=== PATIENT | male | born 1980 | race Caucasian/White ===

== ENCOUNTER 2019-08-25 11:58 | Emergency (ER) | payer MEDICAID, SELFPAY ==
[~2019-08-25] VITALS: Ht 177.8 cm; Wt 156.0 kg
--- NOTE | 2019-08-25 12:28 | NUR ---
PATIENT BROUGTH BACK FROM TRIAGE WITH CHIEF COMPLAINT COUGH FOR 1 WEEK, WITH NASAK CONGESTION AND WHITE SPUTUM. PATIENT DENIES SOB, CP, N/V, FEVER. THE PATIENT IS ALERT, ORIENTED, WARM, & DRY.
[2019-08-25] MEDS ORDERED: ALBUTEROL/IPRATROPIUM 2.5MG/0.5MG, 3 ML NPPB ONE ×2 (13:00→15:00)
[2019-08-25] MEDS ORDERED: ALBUTEROL/IPRATROPIUM 2.5MG/0.5MG, 3 ML ONE ×2 (13:09→15:00)
[2019-08-25 13:21] LABS: BASOPHILS # (AUTO) 0.05 x10^3/uL (0-0.1); BASOPHILS % (AUTO) 1 % (0-1); EOSINOPHILS # (AUTO) 0.18 x10^3/uL (0-0.4); EOSINOPHILS % (AUTO) 2 % (1-7); LYMPHOCYTES # (AUTO) 2.25 x10^3/uL (1-3.4); LYMPHOCYTES % (AUTO) 28 % (22-44); MD NO; MEAN CORPUSCULAR HEMOGLOBIN 28.8 pg (27.5-34.5); MEAN CORPUSCULAR HGB CONC 33.2 g/dL (33.2-36.2); MEAN CORPUSCULAR VOLUME 86.7 fL (81-97); MEAN PLATELET VOLUME 8.4 fL (7.4-10.4); MONOCYTES # (AUTO) 0.61 x10^3/uL (0.2-0.8); MONOCYTES % (AUTO) 8 % (2-9); NEUTROPHILS # (AUTO) 4.97 x10^3/uL (1.8-6.8); NEUTROPHILS % (AUTO) 62 % (42-75); PLATELET COUNT 258 x10^3/uL (130-400); RED BLOOD COUNT 5.62 x10^6/uL (4.38-5.82); RED CELL DISTRIBUTION WIDTH 14.3 % (9.4-14.8)
--- NOTE | 2019-08-25 13:26 | NUR ---
RT ADMININSTERED BREATHING TREATMENTS
[2019-08-25 13:30] LABS: ALANINE AMINOTRANSFERASE 43 U/L (12-78); ALBUMIN 3.2 g/dL (3.4-5.0); ANION GAP 8 mmol/L (5-15); CALCIUM 8.7 mg/dL (8.5-10.1); CHLORIDE 104 mmol/L (98-107); CREATININE 0.81 mg/dL (0.7-1.3)
[2019-08-25 13:32] LABS: ALKALINE PHOSPHATASE 74 U/L (45-117); BILIRUBIN,TOTAL 0.5 mg/dL (0.2-1.0); TOTAL PROTEIN 7.7 g/dL (6.4-8.2)
--- NOTE | 2019-08-25 14:09 | NUR ---
Patient is resting comfortably in bed. Vital Signs within normal limits.
[2019-08-25] MEDS ORDERED: SODIUM CHLORIDE 0.9% 1,000ML IVBOLUS ONE (15:00)
[2019-08-25] MEDS ORDERED: SODIUM CHLORIDE FLUSH 10ML SYR IVF ONE (15:00)
--- NOTE | 2019-08-25 15:07 | NUR ---
TASK RN: RT AT BEDSIDE.
[2019-08-25 16:23] VITALS: BP 139/70
--- NOTE | 2019-08-25 16:30 | NUR ---
MALACHI MCKNIGHT AT BEDSIDE TO DISCUSS POC
[2019-08-25] MEDS ORDERED: INSULIN REGULAR 100 UNITS/ML, 3ML VIAL SQ-INSULIN ONE (17:00)
[2019-08-25] MEDS ORDERED: INSULIN SINGLE DOSE, ER ONE (17:31)
--- NOTE | 2019-08-25 17:36 | NUR ---
DISCHARGE INSTUCTIONS REVIEWED.
== END 2019-08-25 17:43 | disposition home or self-care (01) ==
LOC: ED 12:38
DX: J98.01 Acute bronchospasm (principal); R73.9 Hyperglycemia, unspecified; F17.200 Nicotine dependence, unspecified, uncomplicated
CPT/HCPCS: 36415; 71046; 80053; 82962; 85025; 93005; 94640; 96372; 99284; J1815; J7030; J7512; J7620

== ENCOUNTER 2020-03-05 05:20 | Day surgery (SDC) | payer MEDICAID ==
[~2020-03-05] VITALS: Ht 177.8 cm; Wt 154.0 kg
[2020-03-05] MEDS ORDERED: LACTATED RINGERS 1,000 ML IV SCH (05:59)
[2020-03-05] MEDS ORDERED: CHLORHEXIDINE 15 ML UDC MM ONE (06:00)
[2020-03-05] MEDS ORDERED: OMEG1CAP23 PO (06:04)
[2020-03-05] MEDS ORDERED: CHOL10003 PO (06:04)
[2020-03-05] MEDS ORDERED: NAPR250T6 PO (06:04)
[2020-03-05] MEDS ORDERED: IBUP1TAB11 PO (06:04)
[2020-03-05] MEDS ORDERED: ACET-1600 PO (06:04)
[2020-03-05] MEDS ORDERED: IBUP-1223 PO (06:04)
[2020-03-05 06:08] VITALS: BP 134/91
[2020-03-05] MEDS ORDERED: BUPIVACAINE/PF 0.25% ONE (06:11)
[2020-03-05] MEDS ORDERED: BUPIVACAINE/PF-EPI 0.25% 1:200K ONE (06:11)
[2020-03-05] MEDS ORDERED: MIDAZOLAM 1 MG/ML, 2ML ONE (06:28)
[2020-03-05] MEDS ORDERED: FENTANYL PF 250 MCG/5ML ONE (06:29)
[2020-03-05] MEDS ORDERED: KETOROLAC 30 MG/1 ML ONE (06:31)
[2020-03-05] MEDS ORDERED: ALBUTEROL INH (06:35)
[2020-03-05] MEDS ORDERED: SUGAMMADEX 200 MG/2 ML IVPush ONE (06:51)
[2020-03-05] MEDS ORDERED: PROPOFOL 10 MG/ML, 20ML ONE (06:59)
[2020-03-05] MEDS ORDERED: ROCURONIUM 10MG/ML,5ML ONE (06:59)
[2020-03-05] MEDS ORDERED: NEOSTIGMINE 1 MG/ML, 10ML ONE (06:59)
[2020-03-05] MEDS ORDERED: CEFAZOLIN 1,000 MG ONE ×3 (06:59)
[2020-03-05] MEDS ORDERED: FENTANYL PF 100 MCG/2ML IV PRN (07:00)
[2020-03-05] MEDS ORDERED: GLYCOPYRROLATE 0.2MG/1ML, 5ML ONE (07:00)
[2020-03-05] MEDS ORDERED: ONDANSETRON 2MG/ML, 2ML IVPush PRN (07:00)
[2020-03-05] MEDS ORDERED: HYDROmorphone 1 MG/ML, 1ML INJ IVPush PRN (07:00)
[2020-03-05] MEDS ORDERED: ACETAMINOPHEN 325 MG TABLET PO PRN (07:00)
[2020-03-05] MEDS ORDERED: OXYcodone 5 MG/5 ML ORAL.SOL UDC PO PRN (07:00)
[2020-03-05] MEDS ORDERED: ALBUTEROL SULFATE 2.5 MG/3 ML NPPB PRN (07:00)
[2020-03-05] MEDS ORDERED: hydrALAzine 20 MG/ML, 1ML IV PRN (07:00)
[2020-03-05] MEDS ORDERED: morphine SULFATE 10 MG/ML, 1ML IVPush PRN (07:00)
[2020-03-05] MEDS ORDERED: LABETALOL 5MG/ML, 20ML IV PRN (07:00)
[2020-03-05] MEDS ORDERED: MEPERIDINE/PF 25MG/0.5ML IVPush PRN (07:00)
[2020-03-05] MEDS ORDERED: FENTANYL PF 100 MCG/2ML ONE ×2 (07:18→07:54)
[2020-03-05] MEDS ORDERED: ACETAMINOPHEN 325 MG TABLET ONE (07:54)
[2020-03-05] MEDS ORDERED: OXYcodone 5 MG/5 ML ORAL.SOL UDC ONE (07:54)
[2020-03-05] MEDS ORDERED: ACETAMINOPHEN 650 MG/20.3 ML UDC ONE (07:54)
[2020-03-05] MEDS ORDERED: PROMETHAZINE 25 MG/ML, 1ML ONE (08:04)
[2020-03-05] MEDS ORDERED: PROMETHAZINE 25 MG/ML, 1ML IVPush PRN (08:30)
== END 2020-03-05 09:35 | disposition home or self-care (01) ==
LOC: OUT 05:20
PROVIDERS: ATTEND Orthopaedic Surgery
DX: L03.115 Cellulitis of right lower limb (principal); Z11.59 Encounter for screening for other viral diseases; L72.0 Epidermal cyst; J45.909 Unspecified asthma, uncomplicated; Z79.1 Long term (current) use of non-steroidal anti-inflammatories (NSAID); Z79.891 Long term (current) use of opiate analgesic; Z79.899 Other long term (current) drug therapy; Z88.8 Allergy status to other drugs, medicaments and biological substances; Z82.61 Family history of arthritis
CPT/HCPCS: 11406; 12032; 36415; 87635; 88304; J0690; J1885; J2250; J2550; J2704; J2710; J3010; J7120; J3490

== ENCOUNTER 2020-03-19 12:03 | Inpatient (IN) | payer MEDICAID ==
[~2020-03-19] VITALS: Ht 177.8 cm; Wt 157.0 kg
[~2020-03-19 12:03] MED LIST: ACET-1600 PO; ALBUTEROL INH; CHOL10003 PO; IBUP-1223 PO; IBUP1TAB11 PO; NAPR250T6 PO; OMEG1CAP23 PO
[2020-03-19] MEDS ORDERED: LACTATED RINGERS 1,000 ML IV SCH (12:30)
[2020-03-19] MEDS ORDERED: HYDR-3240 PO (12:37)
[2020-03-19] MEDS ORDERED: CEPH-368 PO (12:37)
[2020-03-19] MEDS ORDERED: SULF1TAB24 PO (12:37)
[2020-03-19 12:43] VITALS: BP 132/88
[2020-03-19] MEDS ORDERED: CHLORHEXIDINE 15 ML UDC MM ONE (13:00)
[2020-03-19] MEDS ORDERED: MIDAZOLAM 1 MG/ML, 2ML ONE (15:02)
[2020-03-19] MEDS ORDERED: FENTANYL PF 100 MCG/2ML ONE ×2 (15:03→15:37)
[2020-03-19] MEDS ORDERED: PROPOFOL 10 MG/ML, 20ML ONE (15:04)
[2020-03-19] MEDS ORDERED: SUCCINYLCHOLINE 20 MG/ML, 10ML ONE (15:04)
[2020-03-19] MEDS ORDERED: CEFAZOLIN 1,000 MG ONE (15:16)
[2020-03-19] MEDS ORDERED: DEXAMETHASONE 4 MG/ML, 1ML ONE (15:16)
[2020-03-19] MEDS ORDERED: ONDANSETRON 2MG/ML, 2ML ONE (15:16)
[2020-03-19] MEDS ORDERED: HALOPERIDOL 5 MG/ML IV PRN (16:00)
[2020-03-19] MEDS ORDERED: LABETALOL 5MG/ML, 20ML IV PRN (16:00)
[2020-03-19] MEDS ORDERED: PROMETHAZINE 25 MG/ML, 1ML IVPush PRN (16:00)
[2020-03-19] MEDS ORDERED: hydrALAzine 20 MG/ML, 1ML IV PRN (16:00)
[2020-03-19] MEDS ORDERED: MEPERIDINE/PF 25MG/0.5ML IVPush PRN (16:00)
[2020-03-19] MEDS ORDERED: HYDROmorphone 1 MG/ML, 1ML INJ IVPush PRN (16:00)
[2020-03-19] MEDS ORDERED: OXYcodone 5 MG/5 ML ORAL.SOL UDC PO PRN (16:00)
[2020-03-19] MEDS ORDERED: FENTANYL PF 100 MCG/2ML IV PRN (16:00)
[2020-03-19] MEDS ORDERED: DIPHENHYDRAMINE 50 MG/ML, 1ML IVPush PRN (16:00)
[2020-03-19] MEDS ORDERED: ACETAMINOPHEN 325 MG TABLET PO PRN (18:00)
[2020-03-19] MEDS ORDERED: MAGNESIUM HYDROXIDE 8%, 30ML UDC PO PRN (18:00)
[2020-03-19] MEDS ORDERED: LORazepam 1MG TABLET PO PRN (18:00)
[2020-03-19] MEDS ORDERED: HYDROcodone/APAP 5/325 TABLET PO PRN (18:00)
[2020-03-19] MEDS ORDERED: BISACODYL 10 MG SUPP PR PRN (18:00)
[2020-03-19] MEDS ORDERED: morphine SULFATE 10 MG/ML, 1ML IV PRN (18:00)
[2020-03-19] MEDS ORDERED: ONDANSETRON 2MG/ML, 2ML IV PRN (18:00)
[2020-03-19] MEDS ORDERED: LORazepam 2 MG/ML, 1ML IV PRN (18:00)
[2020-03-19] MEDS ORDERED: PROMETHAZINE 25 MG/ML, 1ML IM PRN (18:00)
[2020-03-19] MEDS ORDERED: OXYcodone/APAP 5/325MG TABLET PO PRN (18:00)
[2020-03-19] MEDS ORDERED: ALUMINUM/MAG/SIMETHICONE 30 ML UDC PO PRN (18:00)
[2020-03-19] MEDS ORDERED: SENNA/DOCUSATE TABLET PO PRN (18:00)
[2020-03-19 18:52] VITALS: BP 139/99
[2020-03-19] MEDS: KETOROLAC 30 MG/1 ML IV SCH (19:09)
[2020-03-19] MEDS ORDERED: CHLORHEXIDINE 15 ML UDC ONE (20:48)
[2020-03-19] MEDS: DOCUSATE 100 MG CAPSULE PO SCH (21:00)
[2020-03-19] MEDS: SODIUM CHLORIDE FLUSH 10ML SYR IVF SCH (21:00)
[2020-03-19 23:24] VITALS: BP 124/82
[2020-03-19] MEDS: CEFAZOLIN PMX 2GM/50ML 50 ML IVPB SCH (23:43)
[2020-03-20] MEDS: KETOROLAC 30 MG/1 ML IV SCH ×2 (02:34→09:41)
[2020-03-20 03:00] VITALS: BP 114/71
[2020-03-20] MEDS ORDERED: ALBUTEROL HFA 90 MCG/SPRAY INH PRN (03:00)
[2020-03-20] MEDS: CEFAZOLIN PMX 2GM/50ML 50 ML IVPB SCH ×2 (06:34→15:04)
[2020-03-20 07:12] VITALS: BP 137/79
[2020-03-20] MEDS ORDERED: ENOXAPARIN 30 MG/0.3 ML SQ ONE (09:00)
[2020-03-20] MEDS: SODIUM CHLORIDE FLUSH 10ML SYR IVF SCH ×2 (09:41→20:58)
[2020-03-20] MEDS: DOCUSATE 100 MG CAPSULE PO SCH ×2 (09:41→20:58)
[2020-03-20] MEDS: MULTIVITAMINS/MINERALS TABLET PO SCH (09:44)
[2020-03-20 12:29] VITALS: BP 119/89
[2020-03-20 19:08] VITALS: BP 126/76
[2020-03-21 00:26] VITALS: BP 114/72
[2020-03-21 07:20] VITALS: BP 111/77
[2020-03-21] MEDS ORDERED: ENOXAPARIN 40 MG/0.4 ML SQ SCH (09:00)
[2020-03-21] MEDS: DOCUSATE 100 MG CAPSULE PO SCH ×2 (09:00→21:54)
[2020-03-21] MEDS: MULTIVITAMINS/MINERALS TABLET PO SCH (09:00)
[2020-03-21] MEDS: SODIUM CHLORIDE FLUSH 10ML SYR IVF SCH (10:16)
[2020-03-21] MEDS ORDERED: OXYcodone 5 MG/5 ML ORAL.SOL UDC PO PRN ×2 (12:30→14:00)
[2020-03-21] MEDS ORDERED: LABETALOL 5MG/ML, 20ML IV PRN ×2 (12:30→14:00)
[2020-03-21] MEDS ORDERED: MIDAZOLAM 1 MG/ML, 2ML IV PRN (12:30)
[2020-03-21] MEDS ORDERED: ONDANSETRON 2MG/ML, 2ML IVPush PRN (12:30)
[2020-03-21] MEDS ORDERED: LORazepam 2 MG/ML, 1ML IVPush PRN (12:30)
[2020-03-21] MEDS ORDERED: HYDROmorphone 1 MG/ML, 1ML INJ IVPush PRN ×2 (12:30→14:00)
[2020-03-21] MEDS ORDERED: MEPERIDINE/PF 25MG/0.5ML IVPush PRN ×2 (12:30→14:00)
[2020-03-21] MEDS ORDERED: HALOPERIDOL 5 MG/ML IV PRN ×2 (12:30→14:00)
[2020-03-21] MEDS ORDERED: DIPHENHYDRAMINE 50 MG/ML, 1ML IVPush PRN ×2 (12:30→14:00)
[2020-03-21] MEDS ORDERED: EPHEDRINE 50 MG/ML, 1ML IVPush PRN (12:30)
[2020-03-21] MEDS ORDERED: EPHEDRINE 50 MG/ML, 1ML IM PRN (12:30)
[2020-03-21] MEDS ORDERED: KETOROLAC 30 MG/1 ML IVPush PRN (12:30)
[2020-03-21] MEDS ORDERED: DIAZEPAM 5 MG/ML, 2ML IVPush PRN (12:30)
[2020-03-21] MEDS ORDERED: METOCLOPRAMIDE 5 MG/ML, 2ML IVPush PRN (12:30)
[2020-03-21] MEDS ORDERED: hydrALAzine 20 MG/ML, 1ML IV PRN ×2 (12:30→14:00)
[2020-03-21] MEDS ORDERED: FENTANYL PF 100 MCG/2ML IV PRN ×2 (12:30→14:00)
[2020-03-21] MEDS ORDERED: ALBUTEROL/IPRATROPIUM 2.5MG/0.5MG, 3 ML NPPB PRN (12:30)
[2020-03-21] MEDS ORDERED: HYDROcodone/APAP 7.5-325MG/15ML UDC PO PRN (12:30)
[2020-03-21 12:47] VITALS: BP 127/84
[2020-03-21] MEDS ORDERED: CHLORHEXIDINE 15 ML UDC ONE (12:58)
[2020-03-21] MEDS ORDERED: CHLORHEXIDINE 15 ML UDC MM ONE (13:00)
[2020-03-21] MEDS ORDERED: MIDAZOLAM 1 MG/ML, 5ML ONE (13:28)
[2020-03-21] MEDS ORDERED: FENTANYL PF 250 MCG/5ML ONE (13:28)
[2020-03-21] MEDS ORDERED: ROCURONIUM 10MG/ML,5ML ONE (13:28)
[2020-03-21] MEDS ORDERED: DEXAMETHASONE 4 MG/ML, 1ML ONE ×2 (13:28→14:18)
[2020-03-21] MEDS ORDERED: GLYCOPYRROLATE 0.2MG/1ML, 5ML ONE (13:28)
[2020-03-21] MEDS ORDERED: PROPOFOL 10 MG/ML, 20ML ONE ×2 (13:28→14:18)
[2020-03-21] MEDS ORDERED: FENTANYL PF 100 MCG/2ML ONE (13:47)
[2020-03-21] MEDS ORDERED: PROMETHAZINE 25 MG/ML, 1ML IVPush PRN (14:00)
[2020-03-21] MEDS ORDERED: CEFAZOLIN 1,000 MG ONE ×2 (14:18)
[2020-03-21] MEDS ORDERED: ONDANSETRON 2MG/ML, 2ML ONE (14:18)
[2020-03-21] MEDS ORDERED: OXYcodone/APAP 5/325MG TABLET PO PRN (16:00)
[2020-03-21] MEDS ORDERED: BISACODYL 10 MG SUPP PR PRN (16:00)
[2020-03-21] MEDS ORDERED: HYDROmorphone 2 MG/ML, 1ML IVPush PRN (16:00)
[2020-03-21] MEDS ORDERED: ACETAMINOPHEN 325 MG TABLET PO PRN (16:00)
[2020-03-21] MEDS ORDERED: HYDROcodone/APAP 5/325 TABLET PO PRN (16:00)
[2020-03-21] MEDS ORDERED: SENNA/DOCUSATE TABLET PO PRN (16:00)
[2020-03-21] MEDS ORDERED: PROMETHAZINE 25 MG/ML, 1ML IM PRN (16:00)
[2020-03-21] MEDS ORDERED: MAGNESIUM HYDROXIDE 8%, 30ML UDC PO PRN (16:00)
[2020-03-21] MEDS ORDERED: LORazepam 2 MG/ML, 1ML IV PRN (16:00)
[2020-03-21] MEDS ORDERED: ONDANSETRON 2MG/ML, 2ML IV PRN (16:00)
[2020-03-21] MEDS ORDERED: LORazepam 1MG TABLET PO PRN (16:00)
[2020-03-21] MEDS: KETOROLAC 30 MG/1 ML IV SCH (17:05)
[2020-03-21 18:49] VITALS: BP 126/72
[2020-03-21] MEDS ORDERED: SODIUM CHLORIDE FLUSH 10ML SYR IVF SCH (21:00)
[2020-03-21] MEDS ORDERED: DOCUSATE 100 MG CAPSULE PO SCH (21:00)
[2020-03-21] MEDS: CEFAZOLIN PMX 2GM/50ML 50 ML IVPB SCH (21:54)
[2020-03-22 00:18] VITALS: BP 136/82
[2020-03-22] MEDS: KETOROLAC 30 MG/1 ML IV SCH ×2 (01:05→09:42)
[2020-03-22] MEDS: SODIUM CHLORIDE FLUSH 10ML SYR IVF SCH ×3 (01:06→19:53)
[2020-03-22 03:35] VITALS: BP 123/72
[2020-03-22] MEDS: CEFAZOLIN PMX 2GM/50ML 50 ML IVPB SCH (05:53)
[2020-03-22] MEDS ORDERED: ENOXAPARIN 30 MG/0.3 ML SQ SCH (06:00)
[2020-03-22 08:00] VITALS: BP 122/77
[2020-03-22] MEDS: MULTIVITAMINS/MINERALS TABLET PO SCH (09:42)
[2020-03-22] MEDS: DOCUSATE 100 MG CAPSULE PO SCH ×2 (09:43→19:53)
[2020-03-22 12:37] VITALS: BP 130/85
[2020-03-22] MEDS: ENOXAPARIN 40 MG/0.4 ML SQ SCH (17:51)
[2020-03-22 18:25] VITALS: BP 129/89
[2020-03-23 01:51] VITALS: BP 127/79
[2020-03-23] MEDS: ENOXAPARIN 40 MG/0.4 ML SQ SCH ×2 (06:29→17:14)
[2020-03-23 06:46] LABS: CREATININE 0.76 mg/dL (0.7-1.3)
[2020-03-23 09:00] VITALS: BP 122/84
[2020-03-23] MEDS: DOCUSATE 100 MG CAPSULE PO SCH ×2 (10:19→17:13)
[2020-03-23] MEDS: MULTIVITAMINS/MINERALS TABLET PO SCH (10:21)
[2020-03-23 13:03] VITALS: BP 125/78
[2020-03-23] MEDS: SODIUM CHLORIDE FLUSH 10ML SYR IVF SCH ×2 (16:03→21:00)
[2020-03-23 19:02] VITALS: BP 126/82
[2020-03-24 00:13] VITALS: BP 122/85
[2020-03-24] MEDS: ENOXAPARIN 40 MG/0.4 ML SQ SCH ×2 (07:04→18:00)
[2020-03-24 07:09] VITALS: BP 129/84
[2020-03-24] MEDS: DOCUSATE 100 MG CAPSULE PO SCH (09:00)
[2020-03-24] MEDS: MULTIVITAMINS/MINERALS TABLET PO SCH (09:01)
[2020-03-24] MEDS: SODIUM CHLORIDE FLUSH 10ML SYR IVF SCH (09:02)
[2020-03-24 13:24] VITALS: BP 134/84
[2020-03-24] MEDS ORDERED: OXYC5CAP2 PO (16:47)
[2020-03-24] MEDS ORDERED: ONDA4TAB7 PO (16:48)
== END 2020-03-24 18:30 | disposition home or self-care (01) | DRG 921 ==
LOC: ORIP 12:03 → 4NE 17:25
PROVIDERS: ADMIT Orthopaedic Surgery; ATTEND Orthopaedic Surgery
PROC: 0Y9J0ZZ Drainage of Left Lower Leg, Open Approach (ICD-10-PCS; principal; 2020-03-19 14:45)
PROC: 2W4RX5Z Packing of Left Lower Leg using Packing Material (ICD-10-PCS; 2020-03-21)
DX: L76.34 Postprocedural seroma of skin and subcutaneous tissue following other procedure (principal); Y83.8 Other surgical procedures as the cause of abnormal reaction of the patient, or of later complication, without mention of misadventure at the time of the procedure; Y82.8 Other medical devices associated with adverse incidents; L40.9 Psoriasis, unspecified; Z20.828 Contact with and (suspected) exposure to other viral communicable diseases; Z88.8 Allergy status to other drugs, medicaments and biological substances
CPT/HCPCS: 36415; 82565; 87070; 87075; 87205; 87635; G0378; J0690; J1100; J1650; J1885; J2250; J2405; J2704; J3010; J0330; J7120

== ENCOUNTER → 2020-03-25 | Outpatient (CLI) | payer MEDICAID ==
[~2020-03-25] MED LIST changes: +CEPH-368 PO; +HYDR-3240 PO; +ONDA4TAB7 PO; +OXYC5CAP2 PO; +SULF1TAB24 PO
== END | disposition home or self-care (01) ==
LOC: WOUND 12:56
PROVIDERS: ATTEND Internal Medicine Cardiovascular Disease
DX: T81.89XA Other complications of procedures, not elsewhere classified, initial encounter (principal); L40.9 Psoriasis, unspecified; J45.909 Unspecified asthma, uncomplicated; Z79.1 Long term (current) use of non-steroidal anti-inflammatories (NSAID); Z79.891 Long term (current) use of opiate analgesic; Z79.899 Other long term (current) drug therapy; Z88.8 Allergy status to other drugs, medicaments and biological substances; Y83.8 Other surgical procedures as the cause of abnormal reaction of the patient, or of later complication, without mention of misadventure at the time of the procedure; Y92.239 Unspecified place in hospital as the place of occurrence of the external cause
CPT/HCPCS: 97605

== ENCOUNTER 2020-03-27 13:01 | Outpatient (CLI) | payer MEDICAID | END 2020-03-27 23:59 | disposition home or self-care (01) | LOC: WOUND 13:01 | PROVIDERS: ATTEND Internal Medicine Cardiovascular Disease | DX: T81.89XD Other complications of procedures, not elsewhere classified, subsequent encounter (principal); L40.9 Psoriasis, unspecified; J45.909 Unspecified asthma, uncomplicated; G89.4 Chronic pain syndrome; Z79.1 Long term (current) use of non-steroidal anti-inflammatories (NSAID); Z79.891 Long term (current) use of opiate analgesic; Z79.899 Other long term (current) drug therapy; Z88.8 Allergy status to other drugs, medicaments and biological substances; Y83.8 Other surgical procedures as the cause of abnormal reaction of the patient, or of later complication, without mention of misadventure at the time of the procedure | CPT/HCPCS: 97605 ==

== ENCOUNTER → 2020-03-29 | Outpatient (CLI) | payer MEDICAID | END | disposition home or self-care (01) | LOC: WOUND 09:10 | PROVIDERS: ATTEND Internal Medicine Cardiovascular Disease | DX: T81.89XD Other complications of procedures, not elsewhere classified, subsequent encounter (principal); L40.9 Psoriasis, unspecified; J45.909 Unspecified asthma, uncomplicated; Z79.1 Long term (current) use of non-steroidal anti-inflammatories (NSAID); Z79.891 Long term (current) use of opiate analgesic; Z79.899 Other long term (current) drug therapy; Z88.8 Allergy status to other drugs, medicaments and biological substances; Y83.8 Other surgical procedures as the cause of abnormal reaction of the patient, or of later complication, without mention of misadventure at the time of the procedure | CPT/HCPCS: 97605 ==

== ENCOUNTER 2020-04-01 13:10 | Outpatient (CLI) | payer MEDICAID | END 2020-04-01 23:59 | disposition home or self-care (01) | LOC: WOUND 13:10 | PROVIDERS: ATTEND Internal Medicine | DX: T81.31XD Disruption of external operation (surgical) wound, not elsewhere classified, subsequent encounter (principal); S81.802D Unspecified open wound, left lower leg, subsequent encounter; L40.9 Psoriasis, unspecified; J45.909 Unspecified asthma, uncomplicated; G89.4 Chronic pain syndrome; F17.210 Nicotine dependence, cigarettes, uncomplicated; E66.01 Morbid (severe) obesity due to excess calories; E46 Unspecified protein-calorie malnutrition; Z68.42 Body mass index [BMI] 45.0-49.9, adult; Z79.1 Long term (current) use of non-steroidal anti-inflammatories (NSAID); Z79.891 Long term (current) use of opiate analgesic; Z79.899 Other long term (current) drug therapy; Z88.8 Allergy status to other drugs, medicaments and biological substances; X58.XXXD Exposure to other specified factors, subsequent encounter; Y83.8 Other surgical procedures as the cause of abnormal reaction of the patient, or of later complication, without mention of misadventure at the time of the procedure | CPT/HCPCS: 11042; 97605; 99215 ==

== ENCOUNTER 2020-04-03 13:22 | Outpatient (CLI) | payer MEDICAID | END 2020-04-03 23:59 | disposition home or self-care (01) | LOC: WOUND 13:22 | PROVIDERS: ATTEND Internal Medicine | DX: T81.31XD Disruption of external operation (surgical) wound, not elsewhere classified, subsequent encounter (principal); S81.802D Unspecified open wound, left lower leg, subsequent encounter; L40.0 Psoriasis vulgaris; J45.909 Unspecified asthma, uncomplicated; G89.4 Chronic pain syndrome; E44.0 Moderate protein-calorie malnutrition; F17.210 Nicotine dependence, cigarettes, uncomplicated; E66.01 Morbid (severe) obesity due to excess calories; Z68.42 Body mass index [BMI] 45.0-49.9, adult; Z79.1 Long term (current) use of non-steroidal anti-inflammatories (NSAID); Z79.891 Long term (current) use of opiate analgesic; Z79.899 Other long term (current) drug therapy; Z79.4 Long term (current) use of insulin; Z88.8 Allergy status to other drugs, medicaments and biological substances; Y83.8 Other surgical procedures as the cause of abnormal reaction of the patient, or of later complication, without mention of misadventure at the time of the procedure; X58.XXXD Exposure to other specified factors, subsequent encounter | CPT/HCPCS: 97605 ==

== ENCOUNTER → 2020-04-05 | Outpatient (CLI) | payer MEDICAID | END | disposition home or self-care (01) | LOC: WOUND 13:40 | PROVIDERS: ATTEND Family Medicine | DX: T81.31XD Disruption of external operation (surgical) wound, not elsewhere classified, subsequent encounter (principal); S81.802D Unspecified open wound, left lower leg, subsequent encounter; L40.9 Psoriasis, unspecified; J45.909 Unspecified asthma, uncomplicated; G89.4 Chronic pain syndrome; F17.210 Nicotine dependence, cigarettes, uncomplicated; Z79.1 Long term (current) use of non-steroidal anti-inflammatories (NSAID); Z79.891 Long term (current) use of opiate analgesic; Z79.899 Other long term (current) drug therapy; Z88.8 Allergy status to other drugs, medicaments and biological substances; Y83.8 Other surgical procedures as the cause of abnormal reaction of the patient, or of later complication, without mention of misadventure at the time of the procedure; X58.XXXD Exposure to other specified factors, subsequent encounter | CPT/HCPCS: 97605 ==

== ENCOUNTER 2020-04-07 14:41 | Inpatient (IN) | payer MEDICAID ==
[~2020-04-07] VITALS: Ht 177.8 cm; Wt 152.8 kg
--- NOTE | 2020-04-07 15:27 | NUR ---
IRRIGATION TECHNICIAN: PT TO ROOM FROM LOBBY VIA W/C
[2020-04-07] MEDS ORDERED: PIPERACILLIN/TAZO/PMX 3.375GM 50 ML IV ONE (16:30)
--- NOTE | 2020-04-07 16:38 | NUR ---
TASK RN: PIV PLACED, LABS DRAWN, 1ST SET OF CULTURES DRAWN. SALES HOST IN ROOM TO DRAW SECOND SET OF BLOOD CULTURES
[2020-04-07 16:49] LABS: BASOPHILS # (AUTO) 0.07 x10^3/uL (0-0.1); BASOPHILS % (AUTO) 1 % (0-1); EOSINOPHILS # (AUTO) 0.12 x10^3/uL (0-0.4); EOSINOPHILS % (AUTO) 1 % (1-7); LYMPHOCYTES # (AUTO) 2.33 x10^3/uL (1-3.4); LYMPHOCYTES % (AUTO) 19 % (22-44); MD NO; MEAN CORPUSCULAR HEMOGLOBIN 28.6 pg (27.5-34.5); MEAN CORPUSCULAR HGB CONC 33.3 g/dL (33.2-36.2); MEAN CORPUSCULAR VOLUME 85.9 fL (81-97); MEAN PLATELET VOLUME 8.1 fL (7.4-10.4); MONOCYTES # (AUTO) 0.77 x10^3/uL (0.2-0.8); MONOCYTES % (AUTO) 6 % (2-9); NEUTROPHILS # (AUTO) 9.02 x10^3/uL (1.8-6.8); NEUTROPHILS % (AUTO) 73 % (42-75); PLATELET COUNT 366 x10^3/uL (130-400); RED BLOOD COUNT 5.33 x10^6/uL (4.38-5.82); RED CELL DISTRIBUTION WIDTH 13.7 % (9.4-14.8)
[2020-04-07] MEDS ORDERED: PIPERACILLIN/TAZO/PMX 3.375GM 50 ML ONE (16:56)
--- NOTE | 2020-04-07 17:07 | NUR ---
IV ABS STARTED PER NOV. 2 SETS BLOOD CX COLLECTED PRIOR TO ADMIN. PT RESTING ON GURNEY WATCHING TV. DEEPTHI.
[2020-04-07 17:15] LABS: ALBUMIN 2.8 g/dL (3.4-5.0); ANION GAP 11 mmol/L (5-15); CALCIUM 8.5 mg/dL (8.5-10.1); CHLORIDE 105 mmol/L (98-107); CREATININE 0.73 mg/dL (0.7-1.3)
[2020-04-07] MEDS ORDERED: SODIUM CHLORIDE 0.9% 1,000ML IVBOLUS ONE (17:30)
[2020-04-07] MEDS ORDERED: ONDANSETRON 2MG/ML, 2ML ONE (18:07)
[2020-04-07] MEDS ORDERED: MORPHINE SULFATE 4 MG/ML, 1ML ONE (18:07)
--- NOTE | 2020-04-07 18:16 | NUR ---
BREAK RN: PATIENT MEDICATED PER EMAR, GIVEN 2MG MORPHINE TO START OFF WITH PER PATIENT REQUEST, WILL REASSESS PAIN LEVEL IN 10-15MIN FOR OTHER HALF OF MORPHINE DOSE.
[2020-04-07] MEDS ORDERED: ONDANSETRON 2MG/ML, 2ML IVPush PRN (18:30)
[2020-04-07] MEDS ORDERED: SODIUM CHLORIDE FLUSH 10ML SYR IVF PRN (18:30)
[2020-04-07] MEDS ORDERED: MORPHINE SULFATE 4 MG/ML, 1ML IVPush PRN (18:30)
--- NOTE | 2020-04-07 18:49 | NUR ---
BREAK RN: PATIENT STATES PAIN HAS SUBSIDED, DOES NOT WISH OTHER HALF OF MORPHINE DOSE. WASTED WITH ALAN MCKEON
--- NOTE | 2020-04-07 19:04 | NUR ---
HOSPITALIST AT BEDSIDE.
[2020-04-07] MEDS ORDERED: MELATONIN 5 MG TABLET PO PRN (20:00)
[2020-04-07] MEDS ORDERED: DOCUSATE 100 MG CAPSULE PO PRN (20:00)
[2020-04-07] MEDS ORDERED: ENALAPRILAT 1.25 MG/ML, 2ML IVPush PRN (20:00)
--- NOTE | 2020-04-07 20:18 | NUR ---
REPORT GIVEN TO LUIS DANIEL PHILLIPS.
[2020-04-07 20:35] VITALS: BP 138/89
[2020-04-07] MEDS: PIPERACILLIN/TAZO/PMX 3.375GM 50 ML IV SCH (23:03)
[2020-04-07] MEDS: ENOXAPARIN 40 MG/0.4 ML SQ SCH (23:04)
[2020-04-07] MEDS: INSULIN LISPRO 100 UNITS/ML, PEN SQ-INSULIN SCH (23:48)
[2020-04-08 01:14] VITALS: BP 147/92
[2020-04-08 04:45] LABS: BASOPHILS # (AUTO) 0.06 x10^3/uL (0-0.1); BASOPHILS % (AUTO) 1 % (0-1); EOSINOPHILS # (AUTO) 0.25 x10^3/uL (0-0.4); EOSINOPHILS % (AUTO) 2 % (1-7); LYMPHOCYTES # (AUTO) 3.17 x10^3/uL (1-3.4); LYMPHOCYTES % (AUTO) 26 % (22-44); MD NO; MEAN CORPUSCULAR HEMOGLOBIN 28.7 pg (27.5-34.5); MEAN CORPUSCULAR HGB CONC 32.9 g/dL (33.2-36.2); MEAN CORPUSCULAR VOLUME 87.3 fL (81-97); MONOCYTES # (AUTO) 0.94 x10^3/uL (0.2-0.8); MONOCYTES % (AUTO) 8 % (2-9); NEUTROPHILS % (AUTO) 64 % (42-75); PLATELET COUNT 341 x10^3/uL (130-400); RED CELL DISTRIBUTION WIDTH 13.9 % (9.4-14.8)
[2020-04-08] MEDS: PIPERACILLIN/TAZO/PMX 3.375GM 50 ML IV SCH (04:51)
[2020-04-08 04:56] LABS: ANION GAP 8 mmol/L (5-15); CALCIUM 8.4 mg/dL (8.5-10.1); CHLORIDE 103 mmol/L (98-107); CREATININE 0.74 mg/dL (0.7-1.3)
[2020-04-08 06:39] VITALS: BP 105/70
[2020-04-08] MEDS: INSULIN LISPRO 100 UNITS/ML, PEN SQ-INSULIN SCH ×4 (07:59→21:28)
[2020-04-08] MEDS ORDERED: VANCOMYCIN 2,500 MG in SODIUM CHLORIDE 0.9% 500 ML IV ONE (09:00)
[2020-04-08] MEDS: VANCOMYCIN PER PHARMACY MC SCH (09:00)
[2020-04-08] MEDS: INSULIN GLARGINE 100 UNITS/ML, PEN SQ-INSULIN SCH ×2 (09:26→21:28)
[2020-04-08 12:29] VITALS: BP 143/94
[2020-04-08] MEDS: ONDANSETRON 2MG/ML, 2ML IVPush PRN ×2 (12:31→21:27)
[2020-04-08 20:52] VITALS: BP 118/77
[2020-04-08] MEDS: VANCOMYCIN 2,000 MG in SODIUM CHLORIDE 0.9% 500 ML IV SCH (21:15)
[2020-04-08] MEDS: ENOXAPARIN 40 MG/0.4 ML SQ SCH (21:15)
[2020-04-09 00:06] VITALS: BP 132/84
[2020-04-09] MEDS: ONDANSETRON 2MG/ML, 2ML IVPush PRN ×3 (05:08→20:35)
[2020-04-09 07:06] VITALS: BP 100/65
[2020-04-09] MEDS: VANCOMYCIN PER PHARMACY MC SCH (08:13)
[2020-04-09] MEDS: INSULIN LISPRO 100 UNITS/ML, PEN SQ-INSULIN SCH ×4 (08:45→20:56)
[2020-04-09] MEDS: INSULIN GLARGINE 100 UNITS/ML, PEN SQ-INSULIN SCH ×2 (08:46→20:57)
[2020-04-09] MEDS: VANCOMYCIN 2,000 MG in SODIUM CHLORIDE 0.9% 500 ML IV SCH ×2 (09:49→20:35)
[2020-04-09 13:12] VITALS: BP 112/73
[2020-04-09 19:37] VITALS: BP 143/85
[2020-04-09] MEDS: ENOXAPARIN 40 MG/0.4 ML SQ SCH (20:35)
[2020-04-10 01:28] VITALS: BP 116/78
[2020-04-10] MEDS: ONDANSETRON 2MG/ML, 2ML IVPush PRN ×2 (05:10→10:33)
[2020-04-10] MEDS: VANCOMYCIN PER PHARMACY MC SCH (08:14)
[2020-04-10] MEDS ORDERED: INSULIN GLARGINE 100 UNITS/ML, PEN SQ-INSULIN SCH (09:00)
[2020-04-10 09:16] VITALS: BP 129/84
[2020-04-10] MEDS: VANCOMYCIN 2,000 MG in SODIUM CHLORIDE 0.9% 500 ML IV SCH (09:19)
[2020-04-10] MEDS: INSULIN LISPRO 100 UNITS/ML, PEN SQ-INSULIN SCH ×4 (09:20→22:18)
[2020-04-10 10:25] LABS: MEAN CORPUSCULAR HEMOGLOBIN 28.4 pg (27.5-34.5); MEAN CORPUSCULAR HGB CONC 32.9 g/dL (33.2-36.2); MEAN CORPUSCULAR VOLUME 86.3 fL (81-97); MEAN PLATELET VOLUME 7.3 fL (7.4-10.4); PLATELET COUNT 350 x10^3/uL (130-400); RED BLOOD COUNT 4.98 x10^6/uL (4.38-5.82); RED CELL DISTRIBUTION WIDTH 14.2 % (9.4-14.8)
[2020-04-10 11:19] LABS: MD YES
[2020-04-10 11:23] LABS: <PLATELET ESTIMATE> ADEQUATE; <PLT MORPHOLOGY> NORMAL PLT MORPH; <RBC MORPHOLOGY> NORMAL; BANDS%(MANUAL) 6 % (0-7); LYMPH#(MANUAL) 2.46 x10^3/uL (1-3.4); LYMPHS% (MANUAL) 21 % (22-44); MONOS% (MANUAL) 6 % (2-9); SEG#(MANUAL) 7.84 x10^3/uL (1.8-6.8); SEGS% (MANUAL) 67 % (42-75)
[2020-04-10] MEDS: PIPERACILLIN/TAZO/PMX 4.5GM 100 ML IV SCH ×2 (12:42→18:13)
[2020-04-10 14:35] VITALS: BP 115/78
[2020-04-10] MEDS ORDERED: VANCOMYCIN 2,000 MG in SODIUM CHLORIDE 0.9% 500 ML IV SCH (17:00)
[2020-04-10 21:05] VITALS: BP 120/76
[2020-04-10] MEDS: LINEZOLID 600 MG TABLET PO SCH (21:05)
[2020-04-10] MEDS: ENOXAPARIN 40 MG/0.4 ML SQ SCH (21:06)
[2020-04-10] MEDS: INSULIN GLARGINE 100 UNITS/ML, PEN SQ-INSULIN SCH (22:17)
[2020-04-10 22:24] VITALS: BP 120/74
[2020-04-11] MEDS: PIPERACILLIN/TAZO/PMX 4.5GM 100 ML IV SCH ×3 (00:15→12:21)
[2020-04-11 00:18] VITALS: BP 124/72
[2020-04-11 06:13] LABS: BASOPHILS # (AUTO) 0.03 x10^3/uL (0-0.1); BASOPHILS % (AUTO) 0 % (0-1); EOSINOPHILS % (AUTO) 2 % (1-7); LYMPHOCYTES # (AUTO) 1.95 x10^3/uL (1-3.4); LYMPHOCYTES % (AUTO) 17 % (22-44); MD NO; MEAN CORPUSCULAR HEMOGLOBIN 28.7 pg (27.5-34.5); MEAN CORPUSCULAR HGB CONC 33.3 g/dL (33.2-36.2); MEAN CORPUSCULAR VOLUME 86.2 fL (81-97); MEAN PLATELET VOLUME 7.9 fL (7.4-10.4); MONOCYTES # (AUTO) 0.94 x10^3/uL (0.2-0.8); MONOCYTES % (AUTO) 8 % (2-9); NEUTROPHILS # (AUTO) 8.61 x10^3/uL (1.8-6.8); NEUTROPHILS % (AUTO) 74 % (42-75); PLATELET COUNT 360 x10^3/uL (130-400); RED BLOOD COUNT 4.94 x10^6/uL (4.38-5.82); RED CELL DISTRIBUTION WIDTH 13.7 % (9.4-14.8)
[2020-04-11] MEDS: OXYcodone IR 5MG TABLET PO PRN ×3 (06:40→19:52)
[2020-04-11] MEDS: INSULIN LISPRO 100 UNITS/ML, PEN SQ-INSULIN SCH ×6 (07:00→20:01)
[2020-04-11] MEDS: INSULIN GLARGINE 100 UNITS/ML, PEN SQ-INSULIN SCH ×2 (10:24→20:01)
[2020-04-11] MEDS: LINEZOLID 600 MG TABLET PO SCH (10:24)
[2020-04-11 10:27] VITALS: BP 134/78
[2020-04-11 13:20] VITALS: BP 117/77
[2020-04-11] MEDS: DAPTOMYCIN IVPB SCH (13:50)
[2020-04-11] MEDS: SODIUM CHLORIDE 0.9% IVPB SCH (13:50)
[2020-04-11 18:00] VITALS: BP 126/73
[2020-04-11] MEDS: ENOXAPARIN 40 MG/0.4 ML SQ SCH (19:52)
[2020-04-11] MEDS: ONDANSETRON 2MG/ML, 2ML IVPush PRN (20:21)
[2020-04-12 01:09] VITALS: BP 129/83
[2020-04-12] MEDS: OXYcodone IR 5MG TABLET PO PRN ×3 (03:51→17:35)
[2020-04-12] MEDS: ONDANSETRON 2MG/ML, 2ML IVPush PRN (03:52)
[2020-04-12 06:26] LABS: BASOPHILS # (AUTO) 0.05 x10^3/uL (0-0.1); BASOPHILS % (AUTO) 1 % (0-1); EOSINOPHILS # (AUTO) 0.21 x10^3/uL (0-0.4); EOSINOPHILS % (AUTO) 2 % (1-7); LYMPHOCYTES # (AUTO) 2.04 x10^3/uL (1-3.4); LYMPHOCYTES % (AUTO) 19 % (22-44); MD NO; MEAN CORPUSCULAR HEMOGLOBIN 28.4 pg (27.5-34.5); MEAN CORPUSCULAR HGB CONC 32.9 g/dL (33.2-36.2); MEAN CORPUSCULAR VOLUME 86.3 fL (81-97); MEAN PLATELET VOLUME 7.9 fL (7.4-10.4); MONOCYTES # (AUTO) 0.88 x10^3/uL (0.2-0.8); MONOCYTES % (AUTO) 8 % (2-9); NEUTROPHILS # (AUTO) 7.63 x10^3/uL (1.8-6.8); NEUTROPHILS % (AUTO) 71 % (42-75); PLATELET COUNT 385 x10^3/uL (130-400); RED BLOOD COUNT 4.82 x10^6/uL (4.38-5.82); RED CELL DISTRIBUTION WIDTH 13.5 % (9.4-14.8)
[2020-04-12 06:32] LABS: ANION GAP 8 mmol/L (5-15); CALCIUM 8.2 mg/dL (8.5-10.1); CHLORIDE 105 mmol/L (98-107); CREATININE 0.65 mg/dL (0.7-1.3)
[2020-04-12 06:45] VITALS: BP 106/71
[2020-04-12] MEDS: ENOXAPARIN 30 MG/0.3 ML SQ SCH ×2 (08:27→22:00)
[2020-04-12] MEDS: INSULIN LISPRO 100 UNITS/ML, PEN SQ-INSULIN SCH ×4 (08:28→22:00)
[2020-04-12] MEDS: INSULIN GLARGINE 100 UNITS/ML, PEN SQ-INSULIN SCH ×2 (08:28→22:00)
[2020-04-12] MEDS ORDERED: GADOTERATE 7.5 MMOL/15 ML SYR ONE (11:43)
[2020-04-12 13:16] VITALS: BP 136/89
[2020-04-12] MEDS: DAPTOMYCIN IVPB SCH (14:46)
[2020-04-12] MEDS: SODIUM CHLORIDE 0.9% IVPB SCH (14:46)
[2020-04-12 20:16] VITALS: BP 134/88
[2020-04-13 00:51] VITALS: BP 127/76
[2020-04-13] MEDS: OXYcodone IR 5MG TABLET PO PRN ×2 (06:10→20:34)
[2020-04-13 07:16] VITALS: BP 145/87
[2020-04-13] MEDS: INSULIN LISPRO 100 UNITS/ML, PEN SQ-INSULIN SCH ×4 (08:01→20:35)
[2020-04-13] MEDS: ENOXAPARIN 30 MG/0.3 ML SQ SCH ×2 (08:02→20:34)
[2020-04-13 08:58] LABS: ANION GAP 7 mmol/L (5-15); CHLORIDE 107 mmol/L (98-107); CREATININE 0.69 mg/dL (0.7-1.3)
[2020-04-13 09:00] LABS: CREATINE KINASE, TOTAL 36 U/L (39-308)
[2020-04-13] MEDS: INSULIN GLARGINE 100 UNITS/ML, PEN SQ-INSULIN SCH ×2 (09:37→20:36)
[2020-04-13 13:25] VITALS: BP 134/84
[2020-04-13] MEDS: DAPTOMYCIN IVPB SCH (15:51)
[2020-04-13] MEDS: SODIUM CHLORIDE 0.9% IVPB SCH (15:51)
[2020-04-13 18:26] VITALS: BP 143/84
[2020-04-14 01:13] VITALS: BP 118/76
[2020-04-14] MEDS: INSULIN LISPRO 100 UNITS/ML, PEN SQ-INSULIN SCH ×4 (07:00→19:57)
[2020-04-14 07:29] VITALS: BP 139/86
[2020-04-14] MEDS: FENTANYL PF 100 MCG/2ML IV PRN ×2 (08:52→09:04)
[2020-04-14] MEDS ORDERED: HYDROmorphone 1 MG/ML, 1ML INJ IVPush PRN (09:00)
[2020-04-14] MEDS ORDERED: PROMETHAZINE 25 MG SUPP PR PRN (09:00)
[2020-04-14] MEDS ORDERED: PROMETHAZINE 25 MG/ML, 1ML IVPush PRN (09:00)
[2020-04-14] MEDS ORDERED: OXYcodone 5 MG/5 ML ORAL.SOL UDC PO PRN (09:00)
[2020-04-14] MEDS ORDERED: ACETAMINOPHEN 325 MG TABLET PO PRN (09:00)
[2020-04-14] MEDS ORDERED: ONDANSETRON 2MG/ML, 2ML IVPush PRN (09:00)
[2020-04-14] MEDS: INSULIN GLARGINE 100 UNITS/ML, PEN SQ-INSULIN SCH ×2 (10:57→19:58)
[2020-04-14 15:07] VITALS: BP 126/88
[2020-04-14] MEDS: DAPTOMYCIN IVPB SCH (16:19)
[2020-04-14] MEDS: SODIUM CHLORIDE 0.9% IVPB SCH (16:19)
[2020-04-14] MEDS: OXYcodone IR 5MG TABLET PO PRN (18:30)
[2020-04-14 18:35] VITALS: BP 126/80
[2020-04-15 02:04] VITALS: BP 133/86
[2020-04-15 04:56] LABS: BASOPHILS # (AUTO) 0.03 x10^3/uL (0-0.1); BASOPHILS % (AUTO) 0 % (0-1); EOSINOPHILS # (AUTO) 0.22 x10^3/uL (0-0.4); EOSINOPHILS % (AUTO) 2 % (1-7); LYMPHOCYTES # (AUTO) 2.68 x10^3/uL (1-3.4); LYMPHOCYTES % (AUTO) 25 % (22-44); MD NO; MEAN CORPUSCULAR HEMOGLOBIN 28.3 pg (27.5-34.5); MEAN CORPUSCULAR HGB CONC 32.3 g/dL (33.2-36.2); MEAN CORPUSCULAR VOLUME 87.7 fL (81-97); MEAN PLATELET VOLUME 7.2 fL (7.4-10.4); MONOCYTES # (AUTO) 0.81 x10^3/uL (0.2-0.8); MONOCYTES % (AUTO) 8 % (2-9); NEUTROPHILS # (AUTO) 6.97 x10^3/uL (1.8-6.8); NEUTROPHILS % (AUTO) 65 % (42-75); PLATELET COUNT 440 x10^3/uL (130-400); RED BLOOD COUNT 4.97 x10^6/uL (4.38-5.82)
[2020-04-15 05:00] LABS: ANION GAP 6 mmol/L (5-15); CALCIUM 8.8 mg/dL (8.5-10.1); CHLORIDE 105 mmol/L (98-107)
[2020-04-15 05:02] LABS: CREATININE 0.83 mg/dL (0.7-1.3)
[2020-04-15 07:23] VITALS: BP 109/75
[2020-04-15] MEDS: INSULIN LISPRO 100 UNITS/ML, PEN SQ-INSULIN SCH ×4 (09:04→21:27)
[2020-04-15] MEDS: INSULIN GLARGINE 100 UNITS/ML, PEN SQ-INSULIN SCH ×2 (09:05→21:27)
[2020-04-15] MEDS ORDERED: MORPHINE SULFATE 4 MG/ML, 1ML IVPush PRN (10:00)
[2020-04-15 13:02] VITALS: BP 140/85
[2020-04-15] MEDS: DAPTOMYCIN IVPB SCH (16:09)
[2020-04-15] MEDS: SODIUM CHLORIDE 0.9% IVPB SCH (16:09)
[2020-04-15 19:58] VITALS: BP 130/85
[2020-04-16 00:17] VITALS: BP 136/95
[2020-04-16 06:33] VITALS: BP 145/93
[2020-04-16] MEDS: INSULIN LISPRO 100 UNITS/ML, PEN SQ-INSULIN SCH ×4 (07:00→20:35)
[2020-04-16] MEDS: INSULIN GLARGINE 100 UNITS/ML, PEN SQ-INSULIN SCH ×2 (07:51→20:35)
[2020-04-16] MEDS ORDERED: INSULIN GLARGINE 100 UNITS/ML, PEN SQ-INSULIN ONE (08:00)
[2020-04-16 12:42] VITALS: BP 117/78
[2020-04-16] MEDS: SODIUM CHLORIDE 0.9% IVPB SCH (15:55)
[2020-04-16] MEDS: DAPTOMYCIN IVPB SCH (15:55)
[2020-04-16] MEDS ORDERED: CHLORHEXIDINE 15 ML UDC MM ONE (16:30)
[2020-04-16] MEDS ORDERED: LIDOCAINE PF 2%, 5ML ONE (16:55)
[2020-04-16] MEDS ORDERED: PROPOFOL 10 MG/ML, 20ML ONE (16:55)
[2020-04-16] MEDS ORDERED: HYDROmorphone 1 MG/ML, 1ML INJ IVPush PRN (18:00)
[2020-04-16] MEDS ORDERED: FENTANYL PF 100 MCG/2ML IV PRN (18:00)
[2020-04-16] MEDS ORDERED: OXYcodone 5 MG/5 ML ORAL.SOL UDC PO PRN (18:00)
[2020-04-16 18:21] VITALS: BP 139/93
[2020-04-17 00:24] VITALS: BP 109/73
[2020-04-17 07:44] VITALS: BP 128/87
[2020-04-17] MEDS ORDERED: INSU100I13 SQ-INSULIN (08:06)
[2020-04-17] MEDS ORDERED: DOCU100C33 PO (08:06)
[2020-04-17] MEDS ORDERED: LINE600T15 PO (08:07)
[2020-04-17] MEDS: INSULIN GLARGINE 100 UNITS/ML, PEN SQ-INSULIN SCH (09:21)
[2020-04-17] MEDS: INSULIN LISPRO 100 UNITS/ML, PEN SQ-INSULIN SCH ×3 (09:21→16:00)
[2020-04-17] MEDS ORDERED: INSU100I34 SC (13:17)
[2020-04-17] MEDS: SODIUM CHLORIDE 0.9% IVPB SCH (16:00)
[2020-04-17] MEDS: DAPTOMYCIN IVPB SCH (16:00)
== END 2020-04-17 13:45 | disposition home or self-care (01) | DRG 580 ==
LOC: ED 17:17 → EDIP 18:15 → 3N 20:30
PROVIDERS: ADMIT Internal Medicine; ATTEND Hospitalist
PROC: 0KBT0ZZ Excision of Left Lower Leg Muscle, Open Approach (ICD-10-PCS; principal; 2020-04-14 08:00)
PROC: 0JDP0ZZ Extraction of Left Lower Leg Subcutaneous Tissue and Fascia, Open Approach (ICD-10-PCS; 2020-04-16)
DX: L97.229 Non-pressure chronic ulcer of left calf with unspecified severity (principal); L03.116 Cellulitis of left lower limb; L02.419 Cutaneous abscess of limb, unspecified; E44.0 Moderate protein-calorie malnutrition; L02.415 Cutaneous abscess of right lower limb; L02.416 Cutaneous abscess of left lower limb; Z68.42 Body mass index [BMI] 45.0-49.9, adult; E66.01 Morbid (severe) obesity due to excess calories; B95.62 Methicillin resistant Staphylococcus aureus infection as the cause of diseases classified elsewhere; M60.9 Myositis, unspecified; L40.9 Psoriasis, unspecified; E11.65 Type 2 diabetes mellitus with hyperglycemia; F17.210 Nicotine dependence, cigarettes, uncomplicated; J45.909 Unspecified asthma, uncomplicated; Z79.4 Long term (current) use of insulin; Z83.3 Family history of diabetes mellitus; Z79.899 Other long term (current) drug therapy
CPT/HCPCS: 36415; 80048; 80202; 82040; 82550; 82962; 83036; 83605; 84145; 85025; 85651; 86140; 87040; 87070; 87075; 87077; 87106; 87147; 87186; 87205; 87635; 96365; 96375; 99285; G0378; J0690; J0878; J1100; J1650; J2250; J2405; J2543; J2704; J2710; J3010; J3370; A9575; J0330; J1815; J2270; J7030; J7040

== ENCOUNTER → 2020-04-19 | Outpatient (CLI) | payer MEDICAID ==
[~2020-04-19] MED LIST changes: +DOCU100C33 PO; +INSU100I13 SQ-INSULIN; +INSU100I34 SC; +LINE600T15 PO
== END | disposition home or self-care (01) ==
LOC: WOUND 10:25
PROVIDERS: ATTEND Family Medicine
DX: T81.31XD Disruption of external operation (surgical) wound, not elsewhere classified, subsequent encounter (principal); S81.802D Unspecified open wound, left lower leg, subsequent encounter; J45.909 Unspecified asthma, uncomplicated; G89.4 Chronic pain syndrome; F17.210 Nicotine dependence, cigarettes, uncomplicated; Z79.1 Long term (current) use of non-steroidal anti-inflammatories (NSAID); Z79.891 Long term (current) use of opiate analgesic; Z79.899 Other long term (current) drug therapy; Z88.8 Allergy status to other drugs, medicaments and biological substances; Y83.8 Other surgical procedures as the cause of abnormal reaction of the patient, or of later complication, without mention of misadventure at the time of the procedure; X58.XXXD Exposure to other specified factors, subsequent encounter
CPT/HCPCS: 97605

== ENCOUNTER → 2020-04-22 | Outpatient (CLI) | payer MEDICAID | END | disposition home or self-care (01) | LOC: WOUND 10:57 | PROVIDERS: ATTEND Internal Medicine | DX: T81.31XD Disruption of external operation (surgical) wound, not elsewhere classified, subsequent encounter (principal); S81.802D Unspecified open wound, left lower leg, subsequent encounter; J45.909 Unspecified asthma, uncomplicated; L40.0 Psoriasis vulgaris; G89.4 Chronic pain syndrome; E11.65 Type 2 diabetes mellitus with hyperglycemia; F17.210 Nicotine dependence, cigarettes, uncomplicated; E66.01 Morbid (severe) obesity due to excess calories; E44.0 Moderate protein-calorie malnutrition; Z68.42 Body mass index [BMI] 45.0-49.9, adult; Z86.14 Personal history of Methicillin resistant Staphylococcus aureus infection; Z79.1 Long term (current) use of non-steroidal anti-inflammatories (NSAID); Z79.891 Long term (current) use of opiate analgesic; Z79.899 Other long term (current) drug therapy; Z88.8 Allergy status to other drugs, medicaments and biological substances; Z79.4 Long term (current) use of insulin; X58.XXXD Exposure to other specified factors, subsequent encounter; Y83.8 Other surgical procedures as the cause of abnormal reaction of the patient, or of later complication, without mention of misadventure at the time of the procedure | CPT/HCPCS: 97605 ==

== ENCOUNTER → 2020-04-24 | Outpatient (CLI) | payer MEDICAID | END | disposition home or self-care (01) | LOC: WOUND 13:52 | PROVIDERS: ATTEND Internal Medicine | DX: T81.31XD Disruption of external operation (surgical) wound, not elsewhere classified, subsequent encounter (principal); S81.802D Unspecified open wound, left lower leg, subsequent encounter; J45.909 Unspecified asthma, uncomplicated; L40.0 Psoriasis vulgaris; G89.4 Chronic pain syndrome; E11.65 Type 2 diabetes mellitus with hyperglycemia; F17.210 Nicotine dependence, cigarettes, uncomplicated; E66.01 Morbid (severe) obesity due to excess calories; E44.0 Moderate protein-calorie malnutrition; Z68.42 Body mass index [BMI] 45.0-49.9, adult; Z86.14 Personal history of Methicillin resistant Staphylococcus aureus infection; Z79.1 Long term (current) use of non-steroidal anti-inflammatories (NSAID); Z79.891 Long term (current) use of opiate analgesic; Z79.899 Other long term (current) drug therapy; Z88.8 Allergy status to other drugs, medicaments and biological substances; Z79.4 Long term (current) use of insulin; V09.9XXD Pedestrian injured in unspecified transport accident, subsequent encounter; Y83.8 Other surgical procedures as the cause of abnormal reaction of the patient, or of later complication, without mention of misadventure at the time of the procedure | CPT/HCPCS: 97597 ==

== ENCOUNTER → 2020-04-26 | Outpatient (CLI) | payer MEDICAID | END | disposition home or self-care (01) | LOC: WOUND 13:11 | PROVIDERS: ATTEND Family Medicine | DX: T81.31XD Disruption of external operation (surgical) wound, not elsewhere classified, subsequent encounter (principal); S81.802D Unspecified open wound, left lower leg, subsequent encounter; J45.909 Unspecified asthma, uncomplicated; L40.0 Psoriasis vulgaris; G89.4 Chronic pain syndrome; E11.65 Type 2 diabetes mellitus with hyperglycemia; F17.210 Nicotine dependence, cigarettes, uncomplicated; E66.01 Morbid (severe) obesity due to excess calories; E44.0 Moderate protein-calorie malnutrition; Z68.42 Body mass index [BMI] 45.0-49.9, adult; Z86.14 Personal history of Methicillin resistant Staphylococcus aureus infection; Z79.1 Long term (current) use of non-steroidal anti-inflammatories (NSAID); Z79.899 Other long term (current) drug therapy; Z79.891 Long term (current) use of opiate analgesic; Z88.8 Allergy status to other drugs, medicaments and biological substances; Z79.4 Long term (current) use of insulin; V09.9XXD Pedestrian injured in unspecified transport accident, subsequent encounter; Y83.8 Other surgical procedures as the cause of abnormal reaction of the patient, or of later complication, without mention of misadventure at the time of the procedure | CPT/HCPCS: 97605 ==

== ENCOUNTER → 2020-04-29 | Outpatient (CLI) | payer MEDICAID | END | disposition home or self-care (01) | LOC: WOUND 14:20 | PROVIDERS: ATTEND Internal Medicine | DX: T81.31XD Disruption of external operation (surgical) wound, not elsewhere classified, subsequent encounter (principal); S81.802D Unspecified open wound, left lower leg, subsequent encounter; J45.909 Unspecified asthma, uncomplicated; J44.0 Chronic obstructive pulmonary disease with (acute) lower respiratory infection; G89.4 Chronic pain syndrome; L40.0 Psoriasis vulgaris; E11.65 Type 2 diabetes mellitus with hyperglycemia; F17.210 Nicotine dependence, cigarettes, uncomplicated; E66.01 Morbid (severe) obesity due to excess calories; E44.0 Moderate protein-calorie malnutrition; Z68.42 Body mass index [BMI] 45.0-49.9, adult; Z86.14 Personal history of Methicillin resistant Staphylococcus aureus infection; Z79.1 Long term (current) use of non-steroidal anti-inflammatories (NSAID); Z79.899 Other long term (current) drug therapy; Z79.891 Long term (current) use of opiate analgesic; Z79.4 Long term (current) use of insulin; Z88.8 Allergy status to other drugs, medicaments and biological substances; V09.9XXD Pedestrian injured in unspecified transport accident, subsequent encounter; Y83.8 Other surgical procedures as the cause of abnormal reaction of the patient, or of later complication, without mention of misadventure at the time of the procedure | CPT/HCPCS: 97605 ==

== ENCOUNTER → 2020-05-01 | Outpatient (CLI) | payer MEDICAID | END | disposition home or self-care (01) | LOC: WOUND 12:26 | PROVIDERS: ATTEND Internal Medicine | DX: T81.31XD Disruption of external operation (surgical) wound, not elsewhere classified, subsequent encounter (principal); S81.802D Unspecified open wound, left lower leg, subsequent encounter; J45.909 Unspecified asthma, uncomplicated; J44.0 Chronic obstructive pulmonary disease with (acute) lower respiratory infection; G89.4 Chronic pain syndrome; L40.0 Psoriasis vulgaris; E11.65 Type 2 diabetes mellitus with hyperglycemia; F17.210 Nicotine dependence, cigarettes, uncomplicated; E66.01 Morbid (severe) obesity due to excess calories; E44.0 Moderate protein-calorie malnutrition; Z68.42 Body mass index [BMI] 45.0-49.9, adult; Z79.1 Long term (current) use of non-steroidal anti-inflammatories (NSAID); Z86.14 Personal history of Methicillin resistant Staphylococcus aureus infection; Z79.899 Other long term (current) drug therapy; Z79.891 Long term (current) use of opiate analgesic; Z79.4 Long term (current) use of insulin; Z88.8 Allergy status to other drugs, medicaments and biological substances; V09.9XXD Pedestrian injured in unspecified transport accident, subsequent encounter; Y83.8 Other surgical procedures as the cause of abnormal reaction of the patient, or of later complication, without mention of misadventure at the time of the procedure | CPT/HCPCS: 97597 ==

== ENCOUNTER → 2020-05-03 | Outpatient (CLI) | payer MEDICAID | END | disposition home or self-care (01) | LOC: WOUND 08:36 | PROVIDERS: ATTEND Family Medicine | DX: T81.31XD Disruption of external operation (surgical) wound, not elsewhere classified, subsequent encounter (principal); S81.802D Unspecified open wound, left lower leg, subsequent encounter; L40.0 Psoriasis vulgaris; G89.4 Chronic pain syndrome; J45.909 Unspecified asthma, uncomplicated; E66.01 Morbid (severe) obesity due to excess calories; F17.210 Nicotine dependence, cigarettes, uncomplicated; Z68.42 Body mass index [BMI] 45.0-49.9, adult; Z86.14 Personal history of Methicillin resistant Staphylococcus aureus infection; X58.XXXD Exposure to other specified factors, subsequent encounter; Y83.8 Other surgical procedures as the cause of abnormal reaction of the patient, or of later complication, without mention of misadventure at the time of the procedure | CPT/HCPCS: 97605 ==

== ENCOUNTER → 2020-05-06 | Outpatient (CLI) | payer MEDICAID | END | disposition home or self-care (01) | LOC: WOUND 11:44 | PROVIDERS: ATTEND Internal Medicine | DX: T81.31XD Disruption of external operation (surgical) wound, not elsewhere classified, subsequent encounter (principal); S81.802D Unspecified open wound, left lower leg, subsequent encounter; L40.0 Psoriasis vulgaris; G89.4 Chronic pain syndrome; J45.909 Unspecified asthma, uncomplicated; E66.01 Morbid (severe) obesity due to excess calories; F17.210 Nicotine dependence, cigarettes, uncomplicated; Z68.42 Body mass index [BMI] 45.0-49.9, adult; Z86.14 Personal history of Methicillin resistant Staphylococcus aureus infection; Z79.899 Other long term (current) drug therapy; Z79.891 Long term (current) use of opiate analgesic; Z79.4 Long term (current) use of insulin; Z88.8 Allergy status to other drugs, medicaments and biological substances; X58.XXXD Exposure to other specified factors, subsequent encounter; Y83.8 Other surgical procedures as the cause of abnormal reaction of the patient, or of later complication, without mention of misadventure at the time of the procedure | CPT/HCPCS: 97605 ==

== ENCOUNTER → 2020-05-08 | Outpatient (CLI) | payer MEDICAID | END | disposition home or self-care (01) | LOC: WOUND 13:27 | PROVIDERS: ATTEND Internal Medicine | DX: T81.31XD Disruption of external operation (surgical) wound, not elsewhere classified, subsequent encounter (principal); S81.802D Unspecified open wound, left lower leg, subsequent encounter; L40.0 Psoriasis vulgaris; G89.4 Chronic pain syndrome; J45.909 Unspecified asthma, uncomplicated; E66.01 Morbid (severe) obesity due to excess calories; F17.210 Nicotine dependence, cigarettes, uncomplicated; Z68.42 Body mass index [BMI] 45.0-49.9, adult; Z86.14 Personal history of Methicillin resistant Staphylococcus aureus infection; Z79.4 Long term (current) use of insulin; X58.XXXD Exposure to other specified factors, subsequent encounter; Y83.8 Other surgical procedures as the cause of abnormal reaction of the patient, or of later complication, without mention of misadventure at the time of the procedure | CPT/HCPCS: 97597 ==

== ENCOUNTER 2020-05-10 13:54 | Outpatient (CLI) | payer MEDICAID | END 2020-05-10 23:59 | disposition home or self-care (01) | LOC: WOUND 13:54 | PROVIDERS: ATTEND Family Medicine | DX: T81.31XD Disruption of external operation (surgical) wound, not elsewhere classified, subsequent encounter (principal); S81.802D Unspecified open wound, left lower leg, subsequent encounter; J44.0 Chronic obstructive pulmonary disease with (acute) lower respiratory infection; G89.4 Chronic pain syndrome; L40.0 Psoriasis vulgaris; F17.210 Nicotine dependence, cigarettes, uncomplicated; E66.01 Morbid (severe) obesity due to excess calories; E44.0 Moderate protein-calorie malnutrition; Z68.42 Body mass index [BMI] 45.0-49.9, adult; Z86.14 Personal history of Methicillin resistant Staphylococcus aureus infection; Z79.1 Long term (current) use of non-steroidal anti-inflammatories (NSAID); Z79.899 Other long term (current) drug therapy; Z79.891 Long term (current) use of opiate analgesic; Z79.4 Long term (current) use of insulin; Z88.8 Allergy status to other drugs, medicaments and biological substances; V19.9XXD Pedal cyclist (driver) (passenger) injured in unspecified traffic accident, subsequent encounter; Y83.8 Other surgical procedures as the cause of abnormal reaction of the patient, or of later complication, without mention of misadventure at the time of the procedure | CPT/HCPCS: 97605 ==

== ENCOUNTER → 2020-05-14 | Outpatient (CLI) | payer MEDICAID | END | disposition home or self-care (01) | LOC: WOUND 13:51 | PROVIDERS: ATTEND Internal Medicine Cardiovascular Disease | DX: T81.31XD Disruption of external operation (surgical) wound, not elsewhere classified, subsequent encounter (principal); S81.802D Unspecified open wound, left lower leg, subsequent encounter; J45.909 Unspecified asthma, uncomplicated; J44.0 Chronic obstructive pulmonary disease with (acute) lower respiratory infection; G89.4 Chronic pain syndrome; L40.0 Psoriasis vulgaris; E11.65 Type 2 diabetes mellitus with hyperglycemia; F17.210 Nicotine dependence, cigarettes, uncomplicated; E66.01 Morbid (severe) obesity due to excess calories; E44.0 Moderate protein-calorie malnutrition; Z68.42 Body mass index [BMI] 45.0-49.9, adult; Z86.14 Personal history of Methicillin resistant Staphylococcus aureus infection; Z79.1 Long term (current) use of non-steroidal anti-inflammatories (NSAID); Z79.899 Other long term (current) drug therapy; Z79.891 Long term (current) use of opiate analgesic; Z79.4 Long term (current) use of insulin; Z88.8 Allergy status to other drugs, medicaments and biological substances; V19.9XXD Pedal cyclist (driver) (passenger) injured in unspecified traffic accident, subsequent encounter; Y83.8 Other surgical procedures as the cause of abnormal reaction of the patient, or of later complication, without mention of misadventure at the time of the procedure | CPT/HCPCS: 97605 ==

== ENCOUNTER → 2020-05-17 | Outpatient (CLI) | payer MEDICAID | END | disposition home or self-care (01) | LOC: WOUND 13:27 | PROVIDERS: ATTEND Family Medicine | DX: T81.31XD Disruption of external operation (surgical) wound, not elsewhere classified, subsequent encounter (principal); S81.802D Unspecified open wound, left lower leg, subsequent encounter; J44.0 Chronic obstructive pulmonary disease with (acute) lower respiratory infection; G89.4 Chronic pain syndrome; L40.0 Psoriasis vulgaris; F17.210 Nicotine dependence, cigarettes, uncomplicated; E11.65 Type 2 diabetes mellitus with hyperglycemia; E66.01 Morbid (severe) obesity due to excess calories; E44.0 Moderate protein-calorie malnutrition; Z68.42 Body mass index [BMI] 45.0-49.9, adult; Z86.14 Personal history of Methicillin resistant Staphylococcus aureus infection; Z79.1 Long term (current) use of non-steroidal anti-inflammatories (NSAID); Z79.899 Other long term (current) drug therapy; Z79.891 Long term (current) use of opiate analgesic; Z79.4 Long term (current) use of insulin; Z88.8 Allergy status to other drugs, medicaments and biological substances; V19.9XXD Pedal cyclist (driver) (passenger) injured in unspecified traffic accident, subsequent encounter; Y83.8 Other surgical procedures as the cause of abnormal reaction of the patient, or of later complication, without mention of misadventure at the time of the procedure | CPT/HCPCS: 97605 ==

== ENCOUNTER → 2020-05-20 | Outpatient (CLI) | payer MEDICAID | END | disposition home or self-care (01) | LOC: WOUND 10:55 | PROVIDERS: ATTEND Internal Medicine | DX: T81.31XD Disruption of external operation (surgical) wound, not elsewhere classified, subsequent encounter (principal); S81.802D Unspecified open wound, left lower leg, subsequent encounter; J44.0 Chronic obstructive pulmonary disease with (acute) lower respiratory infection; G89.4 Chronic pain syndrome; L40.0 Psoriasis vulgaris; E11.65 Type 2 diabetes mellitus with hyperglycemia; E66.01 Morbid (severe) obesity due to excess calories; F17.210 Nicotine dependence, cigarettes, uncomplicated; E44.0 Moderate protein-calorie malnutrition; Z68.42 Body mass index [BMI] 45.0-49.9, adult; Z86.14 Personal history of Methicillin resistant Staphylococcus aureus infection; Z79.1 Long term (current) use of non-steroidal anti-inflammatories (NSAID); Z79.899 Other long term (current) drug therapy; Z79.891 Long term (current) use of opiate analgesic; Z79.4 Long term (current) use of insulin; Z88.8 Allergy status to other drugs, medicaments and biological substances; V19.9XXD Pedal cyclist (driver) (passenger) injured in unspecified traffic accident, subsequent encounter; Y83.8 Other surgical procedures as the cause of abnormal reaction of the patient, or of later complication, without mention of misadventure at the time of the procedure | CPT/HCPCS: 97605; 99213 ==

== ENCOUNTER → 2020-05-22 | Outpatient (CLI) | payer MEDICAID | END | disposition home or self-care (01) | LOC: WOUND 14:23 | PROVIDERS: ATTEND Internal Medicine | DX: T81.31XD Disruption of external operation (surgical) wound, not elsewhere classified, subsequent encounter (principal); S81.802D Unspecified open wound, left lower leg, subsequent encounter; J44.0 Chronic obstructive pulmonary disease with (acute) lower respiratory infection; G89.4 Chronic pain syndrome; L40.0 Psoriasis vulgaris; E11.65 Type 2 diabetes mellitus with hyperglycemia; E66.01 Morbid (severe) obesity due to excess calories; F17.210 Nicotine dependence, cigarettes, uncomplicated; E44.0 Moderate protein-calorie malnutrition; Z68.42 Body mass index [BMI] 45.0-49.9, adult; Z86.14 Personal history of Methicillin resistant Staphylococcus aureus infection; Z79.1 Long term (current) use of non-steroidal anti-inflammatories (NSAID); Z79.899 Other long term (current) drug therapy; Z79.891 Long term (current) use of opiate analgesic; Z79.4 Long term (current) use of insulin; Z88.8 Allergy status to other drugs, medicaments and biological substances; V19.9XXD Pedal cyclist (driver) (passenger) injured in unspecified traffic accident, subsequent encounter; Y83.8 Other surgical procedures as the cause of abnormal reaction of the patient, or of later complication, without mention of misadventure at the time of the procedure | CPT/HCPCS: 97597 ==

== ENCOUNTER → 2020-05-27 | Outpatient (CLI) | payer MEDICAID | END | disposition home or self-care (01) | LOC: WOUND 10:49 | PROVIDERS: ATTEND Internal Medicine | DX: T81.31XD Disruption of external operation (surgical) wound, not elsewhere classified, subsequent encounter (principal); S81.802D Unspecified open wound, left lower leg, subsequent encounter; J44.0 Chronic obstructive pulmonary disease with (acute) lower respiratory infection; G89.4 Chronic pain syndrome; L40.0 Psoriasis vulgaris; E11.65 Type 2 diabetes mellitus with hyperglycemia; E66.01 Morbid (severe) obesity due to excess calories; F17.210 Nicotine dependence, cigarettes, uncomplicated; E44.0 Moderate protein-calorie malnutrition; Z68.42 Body mass index [BMI] 45.0-49.9, adult; Z86.14 Personal history of Methicillin resistant Staphylococcus aureus infection; Z79.1 Long term (current) use of non-steroidal anti-inflammatories (NSAID); Z79.899 Other long term (current) drug therapy; Z79.891 Long term (current) use of opiate analgesic; Z79.4 Long term (current) use of insulin; Z88.8 Allergy status to other drugs, medicaments and biological substances; V19.9XXD Pedal cyclist (driver) (passenger) injured in unspecified traffic accident, subsequent encounter; Y83.8 Other surgical procedures as the cause of abnormal reaction of the patient, or of later complication, without mention of misadventure at the time of the procedure | CPT/HCPCS: 99214 ==

== ENCOUNTER → 2020-06-12 | Outpatient (CLI) | payer MEDICAID | END | disposition home or self-care (01) | LOC: WOUND 10:48 | PROVIDERS: ATTEND Internal Medicine | DX: T81.31XD Disruption of external operation (surgical) wound, not elsewhere classified, subsequent encounter (principal); S81.802D Unspecified open wound, left lower leg, subsequent encounter; J44.0 Chronic obstructive pulmonary disease with (acute) lower respiratory infection; G89.4 Chronic pain syndrome; L40.0 Psoriasis vulgaris; E11.65 Type 2 diabetes mellitus with hyperglycemia; E66.01 Morbid (severe) obesity due to excess calories; F17.210 Nicotine dependence, cigarettes, uncomplicated; E44.0 Moderate protein-calorie malnutrition; Z68.42 Body mass index [BMI] 45.0-49.9, adult; Z86.14 Personal history of Methicillin resistant Staphylococcus aureus infection; Z79.1 Long term (current) use of non-steroidal anti-inflammatories (NSAID); Z79.899 Other long term (current) drug therapy; Z79.891 Long term (current) use of opiate analgesic; Z79.4 Long term (current) use of insulin; Z88.8 Allergy status to other drugs, medicaments and biological substances; V19.9XXD Pedal cyclist (driver) (passenger) injured in unspecified traffic accident, subsequent encounter; Y83.8 Other surgical procedures as the cause of abnormal reaction of the patient, or of later complication, without mention of misadventure at the time of the procedure | CPT/HCPCS: 97597 ==

== ENCOUNTER → 2020-06-26 | Outpatient (CLI) | payer MEDICAID | END | disposition home or self-care (01) | LOC: WOUND 10:51 | PROVIDERS: ATTEND Internal Medicine | DX: T81.31XD Disruption of external operation (surgical) wound, not elsewhere classified, subsequent encounter (principal); S81.802D Unspecified open wound, left lower leg, subsequent encounter; J44.0 Chronic obstructive pulmonary disease with (acute) lower respiratory infection; G89.4 Chronic pain syndrome; L40.0 Psoriasis vulgaris; E11.65 Type 2 diabetes mellitus with hyperglycemia; E66.01 Morbid (severe) obesity due to excess calories; F17.210 Nicotine dependence, cigarettes, uncomplicated; E44.0 Moderate protein-calorie malnutrition; Z68.42 Body mass index [BMI] 45.0-49.9, adult; Z86.14 Personal history of Methicillin resistant Staphylococcus aureus infection; Z79.1 Long term (current) use of non-steroidal anti-inflammatories (NSAID); Z79.899 Other long term (current) drug therapy; Z79.891 Long term (current) use of opiate analgesic; Z79.4 Long term (current) use of insulin; Z88.8 Allergy status to other drugs, medicaments and biological substances; V19.9XXD Pedal cyclist (driver) (passenger) injured in unspecified traffic accident, subsequent encounter; Y83.8 Other surgical procedures as the cause of abnormal reaction of the patient, or of later complication, without mention of misadventure at the time of the procedure | CPT/HCPCS: 97597 ==

== ENCOUNTER → 2020-07-10 | Outpatient (CLI) | payer MEDICAID | END | disposition home or self-care (01) | LOC: WOUND 11:01 | PROVIDERS: ATTEND Internal Medicine | DX: S81.802D Unspecified open wound, left lower leg, subsequent encounter (principal); L40.0 Psoriasis vulgaris; G89.4 Chronic pain syndrome; J44.9 Chronic obstructive pulmonary disease, unspecified; E66.01 Morbid (severe) obesity due to excess calories; F17.210 Nicotine dependence, cigarettes, uncomplicated; Z68.42 Body mass index [BMI] 45.0-49.9, adult; Z79.4 Long term (current) use of insulin; X58.XXXD Exposure to other specified factors, subsequent encounter | CPT/HCPCS: 99214 ==